=== PATIENT | male | born 1995 | race Caucasian/White ===

== ENCOUNTER → 2017-11-18 | Outpatient (REF) | payer OTHER ==
[~2017-11-18] MED LIST: LOR1 PO
== END ==
LOC: ZZSENDIN 13:21
PROVIDERS: ATTEND Urology
DX: R10.84 Generalized abdominal pain (principal); R33.8 Other retention of urine; R30.0 Dysuria
CPT/HCPCS: 87088

== ENCOUNTER → 2017-12-28 | Outpatient (CLI) | payer OTHER ==
--- NOTE | 2017-12-28 11:00 | RADIOLOGY IMAGING REPORT ---
FACILITY: [facility] - [place] PATIENT NAME: Reyes Forbes : 1995 MR: [id number] V: [id number] EXAM DATE: ORDERING PHYSICIAN: RONNIE REES TECHNOLOGIST: Location: [facility] - [place] Patient: Reyes Forbes : 1995 Visit/Account:[id number] Date of Sevice: 12/28/2017 KIDNEYS HISTORY: Pelvic pain, incomplete bladder emptying COMPARISON: None. FINDINGS: Right kidney measures 11.1 x 4.5 x 4.8 cm. Cortical echogenicity is normal. Intrarenal vascular wav eform is unremarkable. No mass, stone or hydronephrosis. RI: 0.58 Left kidney measures 11.9 x 4.3 x 4.7 cm and has normal cortical echogenicity. Intrarenal waveform m orphology is normal. No mass or hydronephrosis. RI: 0.49 Bladder initially measured 755 mL without wall abnormality. Bilateral ureteral jets are noted. No significant postvoid residual. IMPRESSION: 1. Unremarkable renal ultrasound. 2. Postvoid residual was measured at 15.9 mL Report Dictated By: Clint Smith MD at 12/28/2017 10:54 AM Report E-Signed By: Clint Smith MD at 12/28/2017 10:56 AM WSN:MARIA [email or web address]
== END ==
LOC: US 01:37
PROVIDERS: ATTEND Urology
DX: R10.84 Generalized abdominal pain (principal); R33.8 Other retention of urine; R30.0 Dysuria
CPT/HCPCS: 76705

== ENCOUNTER → 2018-08-08 | Outpatient (CLI) | payer OTHER | LOC: US 00:47 | DX: Q23.1 Congenital insufficiency of aortic valve (principal) | CPT/HCPCS: 93306 ==